=== PATIENT | male | born 1995 | race Caucasian/White ===

== ENCOUNTER 2020-07-15 14:55 | Emergency (ER) | payer OTHER, SELFPAY ==
--- NOTE | 2020-07-15 15:05 | ED.GENADULT ---
HPI - General Adult General Chief complaint: Extremity Injury, Lower Stated complaint: Hip pain/injury Time Seen by Provider: 07/15/20 15:04 Source: patient Mode of arrival: ambulatory Limitations: no limitations History of Present Illness HPI narrative: 25-year-old male patient presents to the [facility] with complaints of left hip pain. 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 Patient states he rested it for about 4 days but denies taking any Tylenol, ibuprofen, heat or ice to the area. Patient states that he tried running shorter distance the next time but continues to have pain. Patient denies any numbness or tingling down the legs. Denies any specific injury that he can remember. Related Data Home Medications Medication Instructions Recorded Confirmed [id number]-vit K tablet PO 07/15/20 [Adults Multivitamin] omega 3-chv-hdq-fish oil [Fish Oil] 1 cap PO DAILY 07/15/20 07/15/20 Allergies Allergy/AdvReac Type Severity Reaction Status Date / Time No Known Allergies Allergy Verified 07/15/20 15:10 Review of Systems Review of Systems: Narrative: CONSTITUTIONAL: Denies fever, chills, or sweats. EYES: Denies visual changes, redness, or discharge. ENT: Denies rhinorrhea, congestion, sore throat, or otalgia. CARDIOVASCULAR: Denies chest pain, palpitations, or edema. RESPIRATORY: Denies cough or dyspnea. GASTROINTESTINAL: Denies abdominal pain, nausea, vomiting, or diarrhea. GENITOURINARY: Denies dysuria or hematuria. SKIN: Denies rash or itching. MUSCULOSKELETAL: Denies back pain, joint pain, or myalgia. Positive left hip and left lower back pain NEUROLOGIC: Denies headache, numbness, or weakness. PSYCHIATRIC: Denies anxiety or depression. PMFSH Comments At the time of my signature I agree with nursing past medical history, surgical, social, and family history. There is no relevant family history pertinent to the presenting complaint. Exam Narrative: Exam Narrative: GENERAL: Well-appearing, well-nourished, and in no acute distress. HEAD: Normocephalic, atraumatic. EYES: PERRLA and EOMI. ENT: Nares clear, no rhinorrhea or epistaxis. Mucous membranes moist. NECK: Supple. No lymphadenopathy CHEST: Clear to auscultation. No respiratory distress. HEART: Regular rate and rhythm. No murmur heard. Normal peripheral pulses. ABDOMEN: Soft, nontender, nondistended, normal active bowel sounds. EXTREMITIES: Patient is able to ambulate to treatment area without difficulty or assistance, pain, or limp. No surface trauma, ecchymosis. no erythema, warmth. No deformity or crepitus or obvious asymmetry of the affected leg compared to the other. No tenderness to palpation over symphysis pubis, ischial bone,iliac crest, trochanter, SI notch, buttocks, quadriceps, femoral triangle, inguinal ligament. No inguinal lymphadenopathy. ROM unlimited and without pain. Normal flexion to chest, extension, abduction and adduction. Distal motor and neurovascular status are intact. BACK: Patient is able to ambulated without assistance. Pt is seated on the stretcher in no obvouis distress. No surface trauma noted. muscle tenderness to Palpation to left lower back more so with twisting towards the right. No obvious spasm or mass. No step-offs or deformity noted to the cervical, thoracic or lumbar spine to firm Palpation at the midline. No CVA tenderness to percussion. No saddle anesthesia. ROM: able to stand erect. Normal flexion, extension, Lateral bending and rotation without limitation or complaint of pain. SKIN: Warm, dry, no rash. NEURO: No focal deficits. Alert and oriented x3. Course Vital Signs Vital signs: Vital Signs Temperature 36.3 C L 07/15/20 15:08 Pulse Rate 47 L 07/15/20 15:08 Respiratory Rate 12 07/15/20 15:08 Blood Pressure 129/75 07/15/20 15:08 Pulse Oximetry 100 07/15/20 15:08 Temperature 3
[2020-07-15 15:08] VITALS: BP 129/75; PULSE 47; RESP 12; TEMP 36.3; O2SAT 100
== END 2020-07-15 15:33 | disposition home or self-care (01) ==
PROVIDERS: Emergency Provider Nurse Practitioner Family
DX: M54.32 Sciatica, left side (principal)
CPT/HCPCS: 99212; G0463

== ENCOUNTER 2021-02-27 08:18 | Outpatient (CLI) | payer OTHER, SELFPAY | END 2021-02-27 08:19 | disposition home or self-care (01) | LOC: ANHCOVIDVC 08:18 | DX: Z23 Encounter for immunization (principal) | CPT/HCPCS: 0001A; 91300 ==

== ENCOUNTER 2021-03-20 08:33 | Outpatient (CLI) | payer OTHER, SELFPAY | END 2021-03-20 08:34 | LOC: ANHCOVIDVC 08:34 | DX: Z23 Encounter for immunization (principal) | CPT/HCPCS: 0002A; 91300 ==